=== PATIENT | male | born 1970 | race Caucasian/White ===

== ENCOUNTER 2020-11-07 16:38 | Inpatient (IN) | payer OTHER ==
[2020-11-07] MEDS ORDERED: ACETAMINOPHEN TAB 500 MG TAB PO STA (17:24)
[2020-11-07] MEDS ORDERED: MORPHINE SULFATE 4 MG/ML SYRINGE IVP STA (17:24)
[2020-11-07] MEDS ORDERED: VANCOMYCIN IV PER PHARMACY 1 EACH MISC MISCELLANE PRN (17:25)
[2020-11-07] MEDS ORDERED: PIPERACILLIN-TAZOBACTAM 3.375 GM in SODIUM CHLORIDE 0.9% 100 ML IVPB STA (17:25)
--- NOTE | 2020-11-07 17:30 | ED ---
Male Urogenital HPI - General Chief complaint: Urogenital Stated complaint: Urinary Issues - Sent by [facility] Time Seen by Provider: 11/07/20 16:52 Source: patient, RN notes reviewed Mode of arrival: ambulatory Limitations: no limitations - History of Present Illness Initial comments: This is a 49-year-old male presents emergency Department from [facility] with chief complaint of testicular pain, swelling, infection. Patient states started developing swelling last Saturday but states over the last few days he's had increasing pain he also states his right lower back pain. Patient's found to have pyogenic orchitis and concern for pyelonephritis. Patient was sent for further evaluation, treatment and urology evaluation. Patient did receive 2 g of Rocephin. Patient states pain is unbearable when he did receive Toradol, morphine. Patient has not had any recent Tylenol. Patient states the morphine did help his pain. Patient denies any dysuria currently states that initially he did and felt that it was related to urinary tract infection and he started taking Azo. Patient denies any nausea vomiting currently patient had persistent fever. Patient's had no prior testicular surgeries. Patient states that nothing really makes his pain feel better or worse, patient was icing it. - Related Data Allergies Allergy/AdvReac Type Severity Reaction Status Date / Time No Known Allergies Allergy Verified 11/07/20 16:47 Review of Systems ROS Statement: Those systems with pertinent positive or pertinent negative responses have been documented in the HPI. ROS Other: All systems not noted in ROS Statement are negative. Past Medical History Additional Past Medical History / Comment(s): FATTY LIVER History of Any Multi-Drug Resistant Organisms: None Reported Past Surgical History: Orthopedic Surgery Additional Past Surgical History / Comment(s): Left knee sx, carpal tunnel Past Psychological History: No Psychological Hx Reported Smoking Status: Former smoker Past Alcohol Use History: Occasional Past Drug Use History: None Reported General Exam Limitations: no limitations General appearance: alert, in no apparent distress Head exam: Present: atraumatic, normocephalic, normal inspection Eye exam: Present: normal appearance, PERRL, EOMI. Absent: scleral icterus, conjunctival injection, periorbital swelling ENT exam: Present: normal exam, normal oropharynx, mucous membranes moist Neck exam: Present: normal inspection. Absent: tenderness, meningismus, lymphadenopathy Respiratory exam: Present: normal lung sounds bilaterally. Absent: respiratory distress, wheezes, rales, rhonchi, stridor Cardiovascular Exam: Present: normal rhythm, tachycardia, normal heart sounds. Absent: systolic murmur, diastolic murmur, rubs, gallop, clicks GI/Abdominal exam: Present: soft, normal bowel sounds. Absent: distended, tenderness, guarding, rebound, rigid exam: Present: testicular tenderness, scrotal swelling, other (Erythematous, taunt skin, swollen scrotum). Absent: normal inspection Back exam: Present: tenderness, CVA tenderness (R). Absent: CVA tenderness (L) Neurological exam: Present: alert, oriented X3, CN II-XII intact Skin exam: Present: warm, dry, intact, normal color. Absent: rash Course Vital Signs 11/07/20 16:43 Temperature 102.1 F H Pulse Rate 109 H Respiratory 20 Rate Blood Pressure 161/68 O2 Sat by Pulse 98 Oximetry Medical Decision Making - Medical Decision Making Case is discussed with who accepts admission recommends Rocephin, vancomycin. Patient will be evaluated for possible surgery. Patient will be admitted for further treatment. Prior records were reviewed patient shows evidence of leukocytosis, orchitis and concerns for pyelonephritis had ultrasound and CT. Disposition Clinical Impression: Orchitis of right testicle, Fever, Flank pain Disposition: ADMITTED IP TO THIS HOSP Condition: Fair Referrals: None,Stated [Primary Care Provider] - 1-2 days
[2020-11-07] MEDS ORDERED: IBUPROFEN 400 MG TAB PO PRN (18:21)
[2020-11-07] MEDS ORDERED: NALOXONE 0.4 MG/ML 1 ML VIAL IV PRN (18:21)
[2020-11-07] MEDS ORDERED: ONDANSETRON 4 MG/2 ML VIAL IVP PRN (18:21)
[2020-11-07] MEDS ORDERED: VANCOMYCIN 2,500 MG in SODIUM CHLORIDE 0.9% 500 ML 500 ML IVPB ONE (18:30)
[2020-11-07] MEDS ORDERED: [UNRECOGNIZED DRUG - OTHER] INHALATION PRN (21:06)
[2020-11-07] MEDS: MORPHINE SULFATE 4 MG/ML SYRINGE IV PRN (21:43)
[2020-11-07] MEDS: SODIUM CHLORIDE 0.9% 1,000 ML IV SCH (21:46)
[2020-11-08] MEDS: MORPHINE SULFATE 4 MG/ML SYRINGE IV PRN ×6 (01:35→21:09)
[2020-11-08] MEDS: SODIUM CHLORIDE 0.9% 1,000 ML IV SCH ×3 (01:37→21:12)
[2020-11-08] MEDS: ACETAMINOPHEN TAB 500 MG TAB PO PRN ×3 (01:41→22:37)
[2020-11-08] MEDS ORDERED: VANCOMYCIN 2,500 MG in SODIUM CHLORIDE 0.9% 500 ML 500 ML IVPB SCH (06:00)
[2020-11-08 06:32] LABS: African American GFR (CKD) >90 (>60 ml/min/1.73 sqM); Anion Gap 8 mmol/L; Blood Urea Nitrogen 16 mg/dL (9-20); Calcium 8.5 mg/dL (8.4-10.2); Carbon Dioxide 29 mmol/L (22-30); Chloride 102 mmol/L (98-107); Glucose 124 mg/dL (74-99); Non-African American GFR(CKD) >90 (>60 ml/min/1.73 sqM); Potassium 3.8 mmol/L (3.5-5.1); Sodium 139 mmol/L (137-145)
[2020-11-08 09:12] LABS: Basophils # (A) 0.05 X 10*3/uL (0.00-0.10); Basophils % (A) 0.2 %; Eosinophils # (A) 0.03 X 10*3/uL (0.04-0.35); Eosinophils % (A) 0.1 %; HGB 12.1 g/dL (13.0-17.0); Lymphocytes # (A) 1.89 X 10*3/uL (0.90-5.00); Lymphocytes % (A) 8.7 %; MCH 31.3 pg (27.0-32.0); MCHC 31.8 g/dL (32.0-37.0); MCV 98.4 fL (80.0-97.0); Mean Platelet Volume 10.8 fL (9.5-12.2); Monocytes # (A) 1.18 X 10*3/uL (0.20-1.00); Monocytes % (A) 5.5 %; Neutrophils # (A) 18.36 X 10*3/uL (1.80-7.70); Neutrophils % (A) 84.9 %; Platelet Count 209 X 10*3/uL (140-440); RBC 3.86 X 10*6/uL (4.40-5.60); RDW 12.8 % (11.5-14.5); WBC 21.64 X 10*3/uL (4.50-10.00)
[2020-11-08] MEDS: KETOROLAC 15 MG/ML 1 ML VIAL IVP SCH ×2 (12:00→17:35)
[2020-11-08] MEDS: VANCOMYCIN 2,250 MG in SODIUM CHLORIDE 0.9% 500 ML 500 ML IVPB SCH ×2 (13:49→22:38)
--- NOTE | 2020-11-08 17:17 | P.GSHP ---
History of Present Illness H&P Date: 11/08/20 Chief Complaint: Right scortal swelling and pain Mr Panda is a 49-year-old male who presents as a transfer from [facility] with complaint of scrotal swelling, pain, ongoing for the past week. He also has been having Dysuria, urinary frequency. He is also been having fever/chills. He attempted to take over the counter Azo and Amoxicillin at home and did not notice any symptoms improvement. He underwent a scrotal U/S in [facility] which showed evidence of right orchitis with possible pyocele. He also underwent a CT abd/pelvis which showed no evidence of hydronephrosis. But did show evidence of adrenal nodule on the left. On presentation he was Febrile at 102 and his WBC was elevated at 28. This am on evaluation he indicates his scrotal pain and swelling is stable. D - Constitutional Constitutional: Reports chills, Reports fatigue, Reports fever - EENT Ears, nose, mouth and throat: Denies headache, Denies sore throat - Cardiovascular Cardiovascular: Denies chest pain, Denies shortness of breath - Respiratory Respiratory: Denies cough, Denies 7 - Gastrointestinal Gastrointestinal: Denies abdominal pain, Denies diarrhea, Denies nausea, Denies vomiting - Genitourinary (Female) Genitourinary: Reports dysuria, Reports flank pain, Reports urgency - Genitourinary (Male) Genitourinary: Reports dysuria, Reports flank pain, Reports testicular pain, Reports urinary frequency - Integumentary Integumentary: Denies pruritus, Denies rash - Neurological Neurological: Denies numbness, Denies weakness - Psychiatric Psychiatric: Denies anxiety, Denies depression Past Medical History Past Medical History: Sleep Apnea/CPAP/BIPAP Additional Past Medical History / Comment(s): FATTY LIVE, CPAP not here with pt. History of Any Multi-Drug Resistant Organisms: None Reported Past Surgical History: Orthopedic Surgery Additional Past Surgical History / Comment(s): Left knee sx, carpal tunnel Past Anesthesia/Blood Transfusion Reactions: No Reported Reaction Past Psychological History: No Psychological Hx Reported Smoking Status: Former smoker Past Alcohol Use History: Occasional Past Drug Use History: None Reported Medications and Allergies Home Medications Medication Instructions Recorded Confirmed Type Acetaminophen Tab [Tylenol] 1,500 mg PO Q6HR PRN 11/07/20 11/07/20 History Ascorbic Acid [Vitamin C] 500 mg PO DAILY 11/07/20 11/07/20 History EPINEPHrine [Primatene Mist] 1 - 2 puff INHALATION RT-Q6H PRN 11/07/20 11/07/20 History Melatonin 10 mg PO HS PRN 11/07/20 11/07/20 History Multivitamins, Thera [Multivitamin 1 tab PO DAILY 11/07/20 11/07/20 History (formulary)] [place]-3 Fatty Acids [[place]-3] 1,000 mg PO DAILY 11/07/20 11/07/20 History Allergies Allergy/AdvReac Type Severity Reaction Status Date / Time No Known Allergies Allergy Verified 11/07/20 19:46 Surgical - Exam Vital Signs Temp Pulse Resp BP Pulse Ox 102.1 F H 109 H 20 161/68 98 11/07/20 16:43 11/07/20 16:43 11/07/20 16:43 11/07/20 16:43 11/07/20 16:43 - General well developed, well nourished, no distress, moderate pain, obese - Eyes PERRL, normal ocular movement - ENT normal nares, normal mucosa - Neck trachea midline, no venous distension - Respiratory normal expansion, normal respiratory effort - Abdomen Abdomen: soft, non tender, no distended - Genitourinary Right scortal sac edema and cellulits, Testicle difficult to palapate, significant induration, no fluctance appreciated. Left scrotal skin with mild edema and cellulitis, normal left testicle - Psychiatric oriented to time, oriented to person, oriented to place Results - Labs 11/08/20 05:37 11/08/20 05:37 Abnormal Lab Results - Last 24 Hours (Table) 11/08/20 11/08/20 Range/Units 05:37 05:37 WBC 21.64 H (4.50-10.00) X 10*3/uL RBC 3.86 L (4.40-5.60) X 10*6/uL Hgb 12.1 L (13.0-17.0) g/dL Hct 38.0 L (39.6-50.0) % MCV 98.4 H (80.0-97.0) fL MCHC 31.8 L (32.0-37.0) g/dL Immature Gran # 0.13 H (0.00-0.04) X 10*3/uL Neutrophils # 18.36 H (1.80-7.70) X 10*3/uL Monocytes # 1.18 H (0.20-1.00) X 10*3/uL Eosinophils # 0.03 L (0.04-0.35) X 10*3/uL Glucose 124 H (74-99) mg/dL Diabetes panel 11/08/20 Range/Units 05:37 Sodium 139 (137-145) mmol/L Potassium 3.8 (3.5-5.1) mmol/L Chloride 102 (98-107) mmol/L Carbon Dioxide 29 (22-30) mmol/L BUN 16 (9-20) mg/dL Creatinine 0.67 (0.66-1.25) mg/dL Glucose 124 H (74-99) mg/dL Calcium 8.5 (8.4-10.2) mg/dL Calcium panel 11/08/20 Range/Units 05:37 Calcium 8.5 (8.4-10.2) mg/dL Pituitary panel 11/08/20 Range/Units 05:37 Sodium 139 (137-145) mmol/L Potassium 3.8 (3.5-5.1) mmol/L Chloride 102 (98-107) mmol/L Carbon Dioxide 29 (22-30) mmol/L BUN 16 (9-20) mg/dL Creatinine 0.67 (0.66-1.25) mg/dL Glucose 124 H (74-99) mg/dL Calcium 8.5 (8.4-10.2) mg/dL Adrenal panel 11/08/20 Range/Units 05:37 Sodium 139 (137-145) mmol/L Potassium 3.8 (3.5-5.1) mmol/L Chloride 102 (98-107) mmol/L Carbon Dioxide 29 (22-30) mmol/L BUN 16 (9-20) mg/dL Creatinine 0.67 (0.66-1.25) mg/dL Glucose 124 H (74-99) mg/dL Calcium 8.5 (8.4-10.2) mg/dL Assessment and Plan Assessment: 49 yo male admitted with sepsis secondary to UTI and orchitis. Patient febrile at 102, WBC of 28 on presentation. No evidence of scrotal abscess appreciated on exam. Plan: -Continue Vancomycin/Ceftrixone abx -Elevate Scrotum -Repeat am labs -Will obtain PVR to r/o urinary retention -Will need outpatient CT adrenal. given his adrenal lesion on non contrast CT
[2020-11-08 18:10] LABS: Appearance,Urine Cloudy (Clear); Bacteria,Urine Rare /hpf; Bilirubin,Urine Negative (Negative); Blood,Urine Trace (Negative); Color,Urine Yellow; Glucose,Urine (UA) Negative (Negative); Ketones,Urine Trace (Negative); Leukocyte Esterase,Urine Negative (Negative); Mucus,Urine Many /hpf; Nitrite,Urine Negative (Negative); Protein,Urine 1+ (Negative); RBC,Urine 4 /hpf (0-5); Specific Gravity,Urine 1.034 (1.001-1.035); WBC,Urine 8 /hpf (0-5)
[2020-11-08] MEDS: ALBUTEROL NEBULIZED 2.5 MG/3 ML INHALATION PRN (20:15)
[2020-11-09] MEDS: KETOROLAC 15 MG/ML 1 ML VIAL IVP SCH ×6 (00:09→23:00)
[2020-11-09] MEDS: SODIUM CHLORIDE 0.9% 1,000 ML IV SCH ×3 (00:29→21:29)
[2020-11-09] MEDS: MORPHINE SULFATE 4 MG/ML SYRINGE IV PRN ×4 (01:14→21:28)
[2020-11-09] MEDS: VANCOMYCIN 2,250 MG in SODIUM CHLORIDE 0.9% 500 ML 500 ML IVPB SCH ×3 (05:13→22:56)
[2020-11-09] MEDS: ALBUTEROL NEBULIZED 2.5 MG/3 ML INHALATION PRN ×3 (08:13→19:59)
[2020-11-09 09:18] LABS: Basophils # (A) 0.04 X 10*3/uL (0.00-0.10); Basophils % (A) 0.2 %; Eosinophils # (A) 0.04 X 10*3/uL (0.04-0.35); Eosinophils % (A) 0.2 %; HCT 36.7 % (39.6-50.0); HGB 11.9 g/dL (13.0-17.0); Lymphocytes # (A) 1.45 X 10*3/uL (0.90-5.00); Lymphocytes % (A) 8.7 %; MCH 31.4 pg (27.0-32.0); MCHC 32.4 g/dL (32.0-37.0); MCV 96.8 fL (80.0-97.0); Mean Platelet Volume 10.5 fL (9.5-12.2); Neutrophils # (A) 14.05 X 10*3/uL (1.80-7.70); Neutrophils % (A) 84.3 %; Platelet Count 216 X 10*3/uL (140-440); RBC 3.79 X 10*6/uL (4.40-5.60); RDW 12.6 % (11.5-14.5); WBC 16.68 X 10*3/uL (4.50-10.00)
[2020-11-09 09:42] LABS: African American GFR (CKD) 135.9 (60.0-200.0); Anion Gap 7.2 mmol/L (4.00-12.00); BUN/Creat Ratio 28.33 Ratio (12.00-20.00); Calcium 8.7 mg/dL (8.7-10.3); Carbon Dioxide 27.8 mmol/L (21.6-31.8); Non-African American GFR(CKD) 117.2 (60.0-200.0); Potassium 3.9 mmol/L (3.5-5.5)
[2020-11-09] MEDS ORDERED: VANCOMYCIN TROUGH DUE 1 EACH MISC MISCELLANE ONE (13:00)
--- NOTE | 2020-11-09 13:23 | P.PN ---
Subjective Progress Note Date: 11/09/20 No acute overnight events, swelling and pain slightly improved. Denies any difficulty voiding Objective - Vital Signs Vital signs: Vital Signs Temp 98.1 F 11/09/20 07:00 Pulse 82 11/09/20 08:23 Resp 17 11/09/20 08:00 BP 150/73 11/09/20 07:00 Pulse Ox 95 11/09/20 07:00 Intake & Output 11/08/20 11/09/20 11/09/20 18:59 06:59 18:59 Intake Total 1686 1000 Balance 1686 1000 Intake: IV 1450 500 Sodium Chloride 0.9% 1, 400 000 ml @ 130 mls/hr IV . [id number] [facility] Rx#:[id number] Vancomycin 2,250 mg In 500 500 Sodium Chloride 0.9% 500 ml 500 ml @ 167 mls/hr IVPB Q8H [facility] Rx#: [id number] Vancomycin 2,500 mg In 500 Sodium Chloride 0.9% 500 ml 500 ml @ 167 mls/hr IVPB ONCE ONE Rx#: [id number] cefTRIAXone 2 gm In 50 Sodium Chloride 0.9% 50 ml @ 100 mls/hr IVPB Q24HR [facility] Rx#:[id number] Intake, IV Titration 500 Amount Vancomycin 2,250 mg In 500 Sodium Chloride 0.9% 500 ml 500 ml @ 167 mls/hr IVPB Q8H [facility] Rx#: [id number] Oral 236 Other: # Voids 2 - Neck Neck: Present: normal ROM - Gastrointestinal General gastrointestinal: Present: soft. Absent: distended, tenderness - Genitourinary Genitourinary Comment(s): Right testicular swelling and tenderness improved compared to yesterday, left testicular normal, some skin thickening - Psychiatric Psychiatric: Present: A&O x's 3 - Labs CBC & Chem 7: 11/09/20 05:25 11/09/20 05:25 Labs: Abnormal Lab Results - Last 24 Hours (Table) 11/08/20 11/09/20 11/09/20 Range/Units Unknown 05:25 05:25 WBC 16.68 H (4.50-10.00) X 10*3/uL RBC 3.79 L (4.40-5.60) X 10*6/uL Hgb 11.9 L (13.0-17.0) g/dL Hct 36.7 L (39.6-50.0) % Immature Gran # 0.10 H (0.00-0.04) X 10*3/uL Neutrophils # 14.05 H (1.80-7.70) X 10*3/uL BUN/Creatinine Ratio 28.33 H (12.00-20.00) Ratio Glucose 128 H (70-110) mg/dL Urine Protein 1+ H (Negative) Urine Ketones Trace H (Negative) Urine Blood Trace H (Negative) Urine WBC 8 H (0-5) /hpf Urine Bacteria Rare H (None) /hpf Urine Mucus Many H (None) /hpf Assessment and Plan Assessment: 49 yo male admitted with sepsis secondary to UTI and orchitis. Patient febrile at 102, WBC of 28 on presentation. No evidence of scrotal abscess appreciated on exam. WBC trending down to 16.88, temp 102.4 overnight, afebrile this am Plan: -Continue Vancomycin/Ceftrixone abx -Elevate Scrotum -Repeat am labs -Will obtain urine cultures from [facility] -Will need outpatient CT adrenal. given his adrenal lesion on non contrast CT
[2020-11-09] MEDS: ACETAMINOPHEN TAB 500 MG TAB PO PRN ×2 (14:06→23:07)
[2020-11-09] MEDS: SENNOSIDES 8.6 MG TAB PO SCH (21:30)
[2020-11-09] MEDS: MELATONIN 5 MG TABLET PO PRN (23:05)
[2020-11-10] MEDS: MORPHINE SULFATE 4 MG/ML SYRINGE IV PRN ×4 (01:50→20:53)
[2020-11-10] MEDS: ALBUTEROL NEBULIZED 2.5 MG/3 ML INHALATION PRN ×4 (02:19→17:22)
[2020-11-10] MEDS: SODIUM CHLORIDE 0.9% 1,000 ML IV SCH ×3 (04:31→16:03)
[2020-11-10] MEDS: KETOROLAC 15 MG/ML 1 ML VIAL IVP SCH ×4 (05:04→23:03)
[2020-11-10] MEDS: VANCOMYCIN 2,250 MG in SODIUM CHLORIDE 0.9% 500 ML 500 ML IVPB SCH ×3 (05:06→21:54)
[2020-11-10] MEDS: SENNOSIDES 8.6 MG TAB PO SCH ×2 (08:40→20:52)
[2020-11-10 09:16] LABS: Basophils # (A) 0.02 X 10*3/uL (0.00-0.10); Basophils % (A) 0.2 %; Eosinophils # (A) 0.07 X 10*3/uL (0.04-0.35); Eosinophils % (A) 0.6 %; HCT 33.7 % (39.6-50.0); HGB 10.9 g/dL (13.0-17.0); Lymphocytes # (A) 1.24 X 10*3/uL (0.90-5.00); Lymphocytes % (A) 11.1 %; MCH 30.8 pg (27.0-32.0); MCHC 32.3 g/dL (32.0-37.0); MCV 95.2 fL (80.0-97.0); Mean Platelet Volume 10.5 fL (9.5-12.2); Monocytes # (A) 0.99 X 10*3/uL (0.20-1.00); Monocytes % (A) 8.8 %; Neutrophils % (A) 78.5 %; Platelet Count 208 X 10*3/uL (140-440); RBC 3.54 X 10*6/uL (4.40-5.60); RDW 12.3 % (11.5-14.5); WBC 11.21 X 10*3/uL (4.50-10.00)
[2020-11-10 10:29] LABS: African American GFR (CKD) 135.9 (60.0-200.0); Non-African American GFR(CKD) 117.2 (60.0-200.0)
--- NOTE | 2020-11-10 14:49 | P.PN ---
Subjective Progress Note Date: 11/10/20 The patient came from [facility] with epididymal orchitis right. His temperature was elevated and he had a white count of 28,000. He is slowly improving. He is afebrile. His white count is down to 11,000. On examination there is still induration of the scrotal skin. There is no distinct palpable abscess. He complains of some mild shortness of breath associated with IV fluids. He has no previous pulmonary history. He is morbidly obese. Impression epididymal orchitis with scrotal cellulitis improving slowly. I did discuss with the patient possibility of this turning into an abscess and we will see how he continues to respond to the antibiotics. Hopefully we can avoid surgical procedure. I'll have one of the hospital to see the patient for his shortness of breath. Objective - Vital Signs Vital signs: Vital Signs Temp 98.4 F 11/10/20 07:00 Pulse 80 11/10/20 14:00 Resp 16 11/10/20 14:00 BP 158/74 11/10/20 07:00 Pulse Ox 94 L 11/10/20 07:00 Intake & Output 11/09/20 11/10/20 11/10/20 18:59 06:59 18:59 Intake Total 218 240 50 Balance 218 240 50 Intake: Intake, IV Titration 50 Amount cefTRIAXone 2 gm In 50 Sodium Chloride 0.9% 50 ml @ 100 mls/hr IVPB Q24HR [facility] Rx#:[id number] Oral 218 240 Other: # Voids 1 1 3 - Labs CBC & Chem 7: 11/10/20 05:50 11/10/20 05:50 Labs: Abnormal Lab Results - Last 24 Hours (Table) 11/10/20 Range/Units 05:50 WBC 11.21 H (4.50-10.00) X 10*3/uL RBC 3.54 L (4.40-5.60) X 10*6/uL Hgb 10.9 L (13.0-17.0) g/dL Hct 33.7 L (39.6-50.0) % Immature Gran # 0.09 H (0.00-0.04) X 10*3/uL Neutrophils # 8.80 H (1.80-7.70) X 10*3/uL
[2020-11-10 18:50] LABS: African American GFR (CKD) >90 (>60 ml/min/1.73 sqM); Anion Gap 8 mmol/L; Blood Urea Nitrogen 16 mg/dL (9-20); Carbon Dioxide 26 mmol/L (22-30); Chloride 103 mmol/L (98-107); Glucose 118 mg/dL (74-99); Magnesium 2.1 mg/dL (1.6-2.3); Non-African American GFR(CKD) >90 (>60 ml/min/1.73 sqM); Potassium 3.6 mmol/L (3.5-5.1); Sodium 137 mmol/L (137-145)
--- NOTE | 2020-11-10 19:09 | XR ---
EXAMINATION TYPE: XR chest 2V DATE OF EXAM: 11/10/2020 COMPARISON: None available. HISTORY: Shortness of breath. TECHNIQUE: Frontal and lateral views of the chest are obtained. FINDINGS: There is moderate interstitial edema with associated hazy and streaky opacity. No pleural effusion, or pneumothorax seen. The cardiac silhouette size is enlarged. The osseous structures ar e intact. IMPRESSION: CHF with superimposed infiltrates not excluded.
[2020-11-10] MEDS: ALBUTEROL NEBULIZED 2.5 MG/3 ML INHALATION SCH (19:44)
[2020-11-10] MEDS ORDERED: FUROSEMIDE 10 MG/ML 4 ML VIAL IV STA (19:55)
[2020-11-10] MEDS: MELATONIN 5 MG TABLET PO PRN (20:52)
[2020-11-11] MEDS: ALBUTEROL NEBULIZED 2.5 MG/3 ML INHALATION SCH (00:27)
--- NOTE | 2020-11-11 00:34 | P.CONS ---
History of Present Illness - Reason for Consult Consult date: 11/10/20 - History of Present Illness The patient is a 49-year-old male with a PMH of obstructive sleep apnea on CPAP who was transferred to [facility] from [facility] with complaints of scrotal swelling and pain. The patient had undergone a scrotal ultrasound which had revealed orchitis. He was subsequently admitted to the urology service. He was placed on IV antibiotic coverage with vancomycin and ceftriaxone and was started on normal saline IV fluids at 130 ml/hr. Medicine service was consulted due to gradually worsening shortness of breath. Patient was seen at the bedside. He reported that the shortness of breath started roughly 24-48 hours ago and that gradually worsened. He reports a long-standing history of asthma along with 35 pack year smoking history although he quit several years ago. The patient notes that his current shortness of breath unlike anything he is previously experienced. Reports some improvement with breathing treatments in the hospital. He reports some wheezing though denied chest discomfort, orthopnea, lower extremity swelling, or PND. Has denied fever, chills, cough, abdominal pain, nausea, vomiting, palpitations, or calf pain. A chest x-ray was obtained and was consistent with pulmonary edema and enlarged cardiac silhouette. After evaluation revealed a proBNP of 724, BUN 16, creatinine 0.62, potassium 3.6, WBC count 11.2, and hemoglobin 10.9. Review of Systems Pertinent positives and negatives as discussed in HPI, a complete review of systems was performed and all other systems are negative. Past Medical History Past Medical History: Sleep Apnea/CPAP/BIPAP Additional Past Medical History / Comment(s): FATTY LIVE, CPAP not here with pt. History of Any Multi-Drug Resistant Organisms: None Reported Past Surgical History: Orthopedic Surgery Additional Past Surgical History / Comment(s): Left knee sx, carpal tunnel Past Anesthesia/Blood Transfusion Reactions: No Reported Reaction Past Psychological History: No Psychological Hx Reported Smoking Status: Former smoker Past Alcohol Use History: Occasional Past Drug Use History: None Reported Medications and Allergies Home Medications Medication Instructions Recorded Confirmed Type Acetaminophen Tab [Tylenol] 1,500 mg PO Q6HR PRN 11/07/20 11/07/20 History Ascorbic Acid [Vitamin C] 500 mg PO DAILY 11/07/20 11/07/20 History EPINEPHrine [Primatene Mist] 1 - 2 puff INHALATION RT-Q6H PRN 11/07/20 11/07/20 History Melatonin 10 mg PO HS PRN 11/07/20 11/07/20 History Multivitamins, Thera [Multivitamin 1 tab PO DAILY 11/07/20 11/07/20 History (formulary)] [place]-3 Fatty Acids [[place]-3] 1,000 mg PO DAILY 11/07/20 11/07/20 History Allergies Allergy/AdvReac Type Severity Reaction Status Date / Time No Known Allergies Allergy Verified 11/07/20 19:46 Physical Exam Vitals: Vital Signs Temp Pulse Pulse Resp BP Pulse Ox 11/10/20 17:36 88 11/10/20 17:22 86 11/10/20 15:00 98.7 F 90 20 186/86 94 L 11/10/20 14:00 80 16 11/10/20 11:02 88 11/10/20 08:00 80 16 11/10/20 07:42 88 11/10/20 07:29 84 11/10/20 07:00 98.4 F 80 16 158/74 94 L 11/10/20 02:35 86 11/10/20 02:19 86 11/10/20 01:00 98.4 F 89 15 154/77 92 L 11/10/20 00:41 17 Intake and Output 11/10/20 11/10/20 11/11/20 14:59 22:59 06:59 Intake Total 50 240 Balance 50 240 Intake: Intake, IV Titration 50 Amount cefTRIAXone 2 gm In 50 Sodium Chloride 0.9% 50 ml @ 100 mls/hr IVPB Q24HR [facility] Rx#:[id number] Oral 240 Other: # Voids 3 8 General: non toxic, no distress, appears at stated age, morbidly obese Derm: no unusual rashes/lesions no unusual ecchymoses, warm, dry Head: atraumatic, normocephalic, symmetric Eyes: EOMI, no lid lag, anicteric sclera, pupils equal round reactive to light ENT: Nose and ears atraumatic, no thrush, no pharyngeal erythema Neck: No thyromegaly, no cervical lymphadenopathy, trachea midline, supple Mouth: no lip lesion, mucus membranes moist Cardiovascular: S1S2 reg, no murmur, positive posterior tibial pulse bilateral, trace lower extremity edema bilaterally, capillary refill less than 2 seconds Lungs: Bilateral diffuse wheezing, no rhonchi, no rales , no accessory muscle use Abdominal: soft, nontender to palpation, no guarding, no appreciable organomegaly, normal bowel sounds Urogenital: Scrotal swelling, tenderness, and erythema Ext: no gross muscle atrophy, muscle strength 5 out of 5 in all 4 extremities grossly, no contractures, Neuro: CN II-XI grossly intact, light touch intact all 4 extremities, finger to nose within normal limits, Psych: Alert, oriented, appropriate affect Results CBC & Chem 7: 11/10/20 05:50 11/10/20 18:17 Labs: Abnormal Lab Results - Last 24 Hours (Table) 11/10/20 11/10/20 Range/Units 05:50 18:17 WBC 11.21 H (4.50-10.00) X 10*3/uL RBC 3.54 L (4.40-5.60) X 10*6/uL Hgb 10.9 L (13.0-17.0) g/dL Hct 33.7 L (39.6-50.0) % Immature Gran # 0.09 H (0.00-0.04) X 10*3/uL Neutrophils # 8.80 H (1.80-7.70) X 10*3/uL Creatinine 0.62 L (0.66-1.25) mg/dL Glucose 118 H (74-99) mg/dL Calcium 8.0 L (8.4-10.2) mg/dL Microbiology - Last 24 Hours (Table) 11/09/20 14:26 Blood Culture - Preliminary Blood No Growth after 24 hours 11/09/20 14:09 Blood Culture - Preliminary Blood No Growth after 24 hours Assessment and Plan Plan: Shortness of breath, likely secondary to likely newly diagnosed CHF -Obtain echocardiogram -Hold off on IV fluids -Lasix 40 mg IVP every 12 hours day for now -Monitor electrolytes daily -Obtain baseline EKG -C/w Duonebs due to hx of Asthma Orchitis -Currently on IV antibiotics -Defer to Urology service Normocytic anemia, unknown baseline -Monitor for now
[2020-11-11] MEDS: MORPHINE SULFATE 4 MG/ML SYRINGE IV PRN ×4 (02:07→21:59)
[2020-11-11] MEDS: SODIUM CHLORIDE 0.9% 1,000 ML IV SCH (04:54)
[2020-11-11] MEDS ORDERED: VANCOMYCIN TROUGH DUE 1 EACH MISC MISCELLANE ONE (05:00)
[2020-11-11] MEDS: KETOROLAC 15 MG/ML 1 ML VIAL IVP SCH (05:03)
[2020-11-11] MEDS: IPRATROPIUM-ALBUTEROL 3 ML NEB INHALATION PRN ×2 (05:57→16:00)
[2020-11-11 06:18] LABS: African American GFR (CKD) >90 (>60 ml/min/1.73 sqM); Non-African American GFR(CKD) >90 (>60 ml/min/1.73 sqM)
[2020-11-11] MEDS: VANCOMYCIN 2,250 MG in SODIUM CHLORIDE 0.9% 500 ML 500 ML IVPB SCH ×3 (06:29→20:58)
[2020-11-11 07:14] LABS: HCT 35.8 % (39.0-53.0); HGB 11.7 gm/dL (13.0-17.5); MCH 30.9 pg (25.0-35.0); MCHC 32.7 g/dL (31.0-37.0); MCV 94.6 fL (80.0-100.0); Mean Platelet Volume 7.8; Platelet Count 255 k/uL (150-450); RBC 3.78 m/uL (4.30-5.90); RDW 12.7 % (11.5-15.5); WBC 11.3 k/uL (3.8-10.6)
--- NOTE | 2020-11-11 07:47 | P.PN ---
Subjective Progress Note Date: 11/11/20 The patient is in the hospital with epididymal orchitis and secondarily scrotal cellulitis. He is been treated with antibiotics and is improving. He had some shortness of breath and medicine saw him yesterday and he is much better. Today the scrotal swelling is less so. The pain is less a. He'll ambulate. If his pain is under control I will plan on discharging home hopefully tomorrow. Objective - Vital Signs Vital signs: Vital Signs Temp 98.2 F 11/11/20 01:55 Pulse 88 11/11/20 06:08 Resp 16 11/11/20 02:00 BP 175/60 11/11/20 01:55 Pulse Ox 95 11/11/20 01:55 Intake & Output 11/10/20 11/11/20 11/11/20 18:59 06:59 18:59 Intake Total 290 240 Balance 290 240 Intake: Intake, IV Titration 50 Amount cefTRIAXone 2 gm In 50 Sodium Chloride 0.9% 50 ml @ 100 mls/hr IVPB Q24HR [facility] Rx#:[id number] Oral 240 240 Other: # Voids 3 8 - Labs CBC & Chem 7: 11/11/20 05:16 11/11/20 05:16 Labs: Abnormal Lab Results - Last 24 Hours (Table) 11/10/20 11/10/20 11/11/20 Range/Units 05:50 18:17 05:16 WBC 11.21 H (4.50-10.00) X 10*3/uL RBC 3.54 L (4.40-5.60) X 10*6/uL Hgb 10.9 L (13.0-17.0) g/dL Hct 33.7 L (39.6-50.0) % Immature Gran # 0.09 H (0.00-0.04) X 10*3/uL Neutrophils # 8.80 H (1.80-7.70) X 10*3/uL Creatinine 0.62 L 0.59 L (0.66-1.25) mg/dL Glucose 118 H (74-99) mg/dL Calcium 8.0 L (8.4-10.2) mg/dL 11/11/20 Range/Units 05:16 WBC 11.3 H (4.50-10.00) X 10*3/uL RBC 3.78 L (4.40-5.60) X 10*6/uL Hgb 11.7 L (13.0-17.0) g/dL Hct 35.8 L (39.6-50.0) % Immature Gran # (0.00-0.04) X 10*3/uL Neutrophils # (1.80-7.70) X 10*3/uL Creatinine (0.66-1.25) mg/dL Glucose (74-99) mg/dL Calcium (8.4-10.2) mg/dL Microbiology - Last 24 Hours (Table) 11/09/20 14:26 Blood Culture - Preliminary Blood No Growth after 24 hours 11/09/20 14:09 Blood Culture - Preliminary Blood No Growth after 24 hours
[2020-11-11] MEDS: FUROSEMIDE 10 MG/ML 4 ML VIAL IV SCH ×2 (09:53→20:58)
[2020-11-11] MEDS: SENNOSIDES 8.6 MG TAB PO SCH ×2 (09:53→20:58)
[2020-11-11] MEDS: HYDROcodone/APAP 5-325MG 1 EACH TAB PO PRN ×3 (11:22→20:58)
[2020-11-11] MEDS: polyethylene glycoL 3350 17 GM POWD.PACK PO SCH (12:51)
--- NOTE | 2020-11-11 18:00 | ECHOF ---
Referral Reason:suspected CHF MEASUREMENTS -------- HEIGHT: 180.3 cm WEIGHT: 162.4 kg BP: IVSd: 1.5 cm (0.6 - 1.1) LVIDd: 4.9 cm (3.9 - 5.3) LVPWd: 1.3 cm (0.6 - 1.1) IVSs: 1.8 cm LVIDs: 3.5 cm LVPWs: 1.8 cm LAESV Index (A-L): 22.29 ml/m Ao Diam: 3.7 cm (2.0 - 3.7) AV Cusp: 2.1 cm (1.5 - 2.6) LA Diam: 2.6 cm (2.7 - 3.8) MV EXCURSION: 27.202 mm (> 18.000) MV EF SLOPE: 123 mm/s (70 - 150) EPSS: 1.8 cm MV E Tomasz: 1.12 m/s MV DecT: 201 ms MV A Tomasz: 0.78 m/s MV E/A Ratio: 1.45 AV maxP.39 mmHg AV meanP.54 mmHg RAP: 15.00 mmHg RVSP: 32.52 mmHg FINDINGS -------- This was a technically difficult study with suboptimal parasternal views. The left ventricular size is normal. There is mild concentric left ventricular hypertrophy. Overa ll left ventricular systolic function is low-normal with, an EF between 50 - 55 %. The right ventricle is normal in size. The left atrial size is normal. The right atrial size is normal. Peak/mean gradient across the Aortic Valve is 20.39mmHg / 10.54mmHg suggestive of mild Aortic Stenosi s. Unable to visualize the Aortic Valve The mitral valve is normal. The mitral valve leaflets are mildly thickened. Mild mitral regurgita tion is present. The tricuspid valve appears structurally normal. Mild tricuspid regurgitation present. Right vent ricular systolic pressure is normal at < 35 mmHg. There is no pulmonic regurgitation present. The aortic root size is normal. The inferior vena cava is mildly dilated. There is no pericardial effusion. CONCLUSIONS -------- 1. The left ventricular size is normal. 2. There is mild concentric left ventricular hypertrophy. 3. Overall left ventricular systolic function is low-normal with, an EF between 50 - 55 %. 4. Peak/mean gradient across the Aortic Valve is 20.39mmHg / 10.54mmHg suggestive of mild Aortic Sten osis. Unable to visualize the Aortic Valve 5. The mitral valve leaflets are mildly thickened. 6. Mild mitral regurgitation is present. 7. Mild tricuspid regurgitation present. 8. The inferior vena cava is mildly dilated. 9. There is no pericardial effusion. EXTRA HAND: Yessenia Malcolm RDCS
[2020-11-11 18:11] LABS: African American GFR (CKD) >90 (>60 ml/min/1.73 sqM); Anion Gap 9 mmol/L; Blood Urea Nitrogen 15 mg/dL (9-20); Calcium 8.7 mg/dL (8.4-10.2); Carbon Dioxide 30 mmol/L (22-30); Chloride 97 mmol/L (98-107); Glucose 155 mg/dL (74-99); Magnesium 1.9 mg/dL (1.6-2.3); Non-African American GFR(CKD) >90 (>60 ml/min/1.73 sqM); Potassium 3.6 mmol/L (3.5-5.1); Sodium 136 mmol/L (137-145)
--- NOTE | 2020-11-11 20:26 | P.PN ---
Subjective Progress Note Date: 11/11/20 (delayed charting seen at 0900) Principal diagnosis: shortness of breath The patient is a 49-year-old male with a PMH of obstructive sleep apnea on CPAP who was transferred to [facility] from [facility] with complaints of scrotal swelling and pain. The patient had undergone a scrotal ultrasound which had revealed orchitis. During treatment he developed worsening respiratory distress. Medicine was subsequently consulted. Patient started on Lasix after chest x-ray revealed acute pulmonary edema. Patient seen and examined at bedside. He feels much improved after receiving IV Lasix. His breathing is much easier, no chest discomfort, coughing has improve d, no nausea, no vomiting, pain is well controlled. General: non toxic, no distress, appears younger than stated age, obese Derm: warm, dry Head: atraumatic, normocephalic, symmetric Eyes: EOMI, no lid lag, anicteric sclera Mouth: no lip lesion, mucus membranes moist Cardiovascular: S1S2 reg, no murmur, positive posterior tibial pulse bilateral, Lungs: Crackles right lower lobe , no accessory muscle use Abdominal: soft, nontender to palpation, no guarding, no appreciable organomegaly Ext: no gross muscle atrophy, no edema, no contractures Neuro: CN II-XI grossly intact, no focal neuro deficits Psych: Alert, oriented, appropriate affect Acute exacerbation of diastolic congestive heart failure -Continue with diuresis -Echocardiogram revealed which shows mild concentric LVH but it preserved ejection fraction of 50-55%. Will need outpatient follow-up in 6 months to one year or as there is suggestion of mild aortic stenosis. -Strict I's and O's, daily weight -Follow potassium and magnesium levels Orchitis with sepsis -Management per urology -Continue with vancomycin and ceftriaxone -Follow creatinine closely Morbid obesity with BMI 48.6 -Structured outpatient weight loss Sleep apnea -Resume CPAP on discharge Mild intermittent asthma without exacerbation -Continue with scheduled DuoNeb's and primatine mist Thank you for allowing us to participate in the care of this pleasant patient. Do not hesitate to contact us with questions. Someone can be reached from the [facility] hospitalist group all hours of the day at [phone] or via perfect serve. Objective - Vital Signs Vital signs: Vital Signs Temp 99.6 F 11/11/20 13:00 Pulse 82 11/11/20 16:12 Resp 17 11/11/20 13:00 BP 169/74 11/11/20 13:00 Pulse Ox 96 11/11/20 13:00 Intake & Output 11/10/20 11/11/20 11/11/20 18:59 06:59 18:59 Intake Total 290 240 790 Balance 290 240 790 Intake: IV 550 Vancomycin 2,250 mg In 500 Sodium Chloride 0.9% 500 ml 500 ml @ 167 mls/hr IVPB Q8H BRANDO Rx#: [id number] cefTRIAXone 2 gm In 50 Sodium Chloride 0.9% 50 ml @ 100 mls/hr IVPB Q24HR BRANDO Rx#:[id number] Intake, IV Titration 50 Amount cefTRIAXone 2 gm In 50 Sodium Chloride 0.9% 50 ml @ 100 mls/hr IVPB Q24HR BRANDO Rx#:[id number] Oral 240 240 240 Other: # Voids 3 8 - Labs CBC & Chem 7: 11/11/20 05:16 11/11/20 17:35 Labs: Abnormal Lab Results - Last 24 Hours (Table) 11/11/20 11/11/20 11/11/20 Range/Units 05:16 05:16 17:35 WBC 11.3 H (3.8-10.6) k/uL RBC 3.78 L (4.30-5.90) m/uL Hgb 11.7 L (13.0-17.5) gm/dL Hct 35.8 L (39.0-53.0) % Sodium 136 L (137-145) mmol/L Chloride 97 L (98-107) mmol/L Creatinine 0.59 L 0.60 L (0.66-1.25) mg/dL Glucose 155 H (74-99) mg/dL Microbiology - Last 24 Hours (Table) 11/09/20 14:26 Blood Culture - Preliminary Blood No Growth after 48 hours 11/09/20 14:09 Blood Culture - Preliminary Blood No Growth after 48 hours
[2020-11-11] MEDS: MELATONIN 5 MG TABLET PO PRN (21:59)
[2020-11-12] MEDS: MORPHINE SULFATE 4 MG/ML SYRINGE IV PRN ×2 (02:00→05:32)
[2020-11-12] MEDS: HYDROcodone/APAP 5-325MG 1 EACH TAB PO PRN ×2 (03:01→08:16)
[2020-11-12] MEDS: VANCOMYCIN 2,250 MG in SODIUM CHLORIDE 0.9% 500 ML 500 ML IVPB SCH (05:32)
[2020-11-12 08:10] VITALS: BP 176/78; PULSE 67; RESP 20; TEMP 98.6
[2020-11-12] MEDS: SENNOSIDES 8.6 MG TAB PO SCH (08:16)
[2020-11-12] MEDS: FUROSEMIDE 10 MG/ML 4 ML VIAL IV SCH (08:16)
[2020-11-12] MEDS: polyethylene glycoL 3350 17 GM POWD.PACK PO SCH (08:17)
[2020-11-12 09:16] LABS: Magnesium 2.1 mg/dL (1.5-2.4); Phosphorus 3.8 mg/dL (2.4-5.1)
--- NOTE | 2020-11-12 09:37 | P.DS ---
Providers Date of admission: 11/07/20 17:43 Attending physician: Samm Stanley MD Consults: 11/10/20 17:57 Consult Physician Routine Consulting Provider: Stacey Briones Consult Reason/Comments: medical management Do you want consulting provider notified?: Yes Primary care physician: Stated None Hospital Course: The patient is 49. He was transferred from [facility] to [facility] under the care of Ashley because of a scrotal cellulitis. He was treated with IV antibiotics and his white count went from 21,000 11,000 over 48 hours. The swelling decreased. No obvious abscess formation occurred. Some pulmonary issues during this hospitalization and medicine was asked to see him and treated him appropriately. Swelling of the scrotum was decreased. He is afebrile. Blood cultures are negative. He is ready for discharge home. He'll go home on Levaquin 500 daily plus Bucklin and Toradol when necessary for pain. He'll follow-up in the office next week. Medicine will see him to treat him appropriately with pulmonary treatment to. His condition is good. His been instructed of the swelling or pain gets worse his to contact us immediately. The patient concurs and agrees with this discharge plan. P Patient Condition at Discharge: Good Plan - Discharge Summary Discharge Rx Participant: Yes New Discharge Prescriptions: New HYDROcodone/APAP 5-325MG [Bucklin 5-325] 1 tab PO Q4HR PRN #20 tab PRN Reason: Pain Control Ketorolac [Toradol] 10 mg PO Q6HR PRN #20 tab PRN Reason: Pain Control Levofloxacin [Levaquin] 500 mg PO DAILY 1 Days #10 tab No Action Multivitamins, Thera [Multivitamin (formulary)] 1 tab PO DAILY Ascorbic Acid [Vitamin C] 500 mg PO DAILY Acetaminophen Tab [Tylenol] 1,500 mg PO Q6HR PRN PRN Reason: Fever And/ Or Pain Melatonin 10 mg PO HS PRN PRN Reason: Insomnia EPINEPHrine [Primatene Mist] 1 - 2 puff INHALATION RT-Q6H PRN PRN Reason: Shortness Of Breath Royston-3 Fatty Acids [Royston-3] 1,000 mg PO DAILY Discharge Medication List Acetaminophen Tab [Tylenol] 1,500 mg PO Q6HR PRN 11/07/20 [History] Ascorbic Acid [Vitamin C] 500 mg PO DAILY 11/07/20 [History] EPINEPHrine [Primatene Mist] 1 - 2 puff INHALATION RT-Q6H PRN 11/07/20 [History] Melatonin 10 mg PO HS PRN 11/07/20 [History] Multivitamins, Thera [Multivitamin (formulary)] 1 tab PO DAILY 11/07/20 [History] Royston-3 Fatty Acids [Royston-3] 1,000 mg PO DAILY 11/07/20 [History] HYDROcodone/APAP 5-325MG [Bucklin 5-325] 1 tab PO Q4HR PRN #20 tab 11/12/20 [Rx] Ketorolac [Toradol] 10 mg PO Q6HR PRN #20 tab 11/12/20 [Rx] Levofloxacin [Levaquin] 500 mg PO DAILY 1 Days #10 tab 11/12/20 [Rx] Follow up Appointment(s)/Referral(s): Samm Stanley MD [STAFF PHYSICIAN] - 1 Week None,Stated [Primary Care Provider] - 1-2 days Discharge Disposition: HOME SELF-CARE
--- NOTE | 2020-11-12 16:12 | P.PN ---
Subjective Progress Note Date: 11/12/20 Principal diagnosis: sob Patient states that he was feeling better, no significant sob currently. No chest pain. No fevers. He is getting ready to be discharged. Objective - Vital Signs Vital signs: Vital Signs Temp 98.6 F 11/12/20 07:00 Pulse 67 11/12/20 07:00 Resp 20 11/12/20 07:00 BP 176/78 11/12/20 07:00 Pulse Ox 94 L 11/12/20 07:00 Intake & Output 11/11/20 11/12/20 11/12/20 18:59 06:59 18:59 Intake Total 790 500 Balance 790 500 Weight 157.9 kg Intake: IV 550 500 Vancomycin 2,250 mg In 500 500 Sodium Chloride 0.9% 500 ml 500 ml @ 167 mls/hr IVPB Q8H BRANDO Rx#: [id number] cefTRIAXone 2 gm In 50 Sodium Chloride 0.9% 50 ml @ 100 mls/hr IVPB Q24HR BRANDO Rx#:[id number] Oral 240 Other: Voiding Method Toilet # Voids 2 - Exam General: non toxic, no distress, appears younger than stated age, obese Derm: warm, dry Head: atraumatic, normocephalic, symmetric Eyes: EOMI, no lid lag, anicteric sclera Mouth: no lip lesion, mucus membranes moist Cardiovascular: S1S2 reg, no murmur, positive posterior tibial pulse bilateral, Lungs: Scattered wheezing. Abdominal: soft, nontender to palpation, no guarding, no appreciable organomegaly Ext: no gross muscle atrophy, no edema, no contractures Neuro: CN II-XI grossly intact, no focal neuro deficits Psych: Alert, oriented, appropriate affect - Labs CBC & Chem 7: 11/11/20 05:16 11/11/20 17:35 Labs: Abnormal Lab Results - Last 24 Hours (Table) 11/11/20 Range/Units 17:35 Sodium 136 L (137-145) mmol/L Chloride 97 L (98-107) mmol/L Creatinine 0.60 L (0.66-1.25) mg/dL Glucose 155 H (74-99) mg/dL Microbiology - Last 24 Hours (Table) 11/09/20 14:26 Blood Culture - Preliminary Blood No Growth after 48 hours 11/09/20 14:09 Blood Culture - Preliminary Blood No Growth after 48 hours Assessment and Plan Plan: Acute exacerbation of diastolic congestive heart failure -No need for outpatient diuresis upon discharge. -Echocardiogram revealed which shows mild concentric LVH but it preserved ejection fraction of 50-55%. Will need outpatient follow-up in 6 months to one year or as there is suggestion of mild aortic stenosis. -Patient told to follow up with PCP and echo in 6 months. Orchitis with sepsis -Management per urology -Will be discharged on oral abx. Morbid obesity with BMI 48.6 -Structured outpatient weight loss Sleep apnea -Resume CPAP on discharge Mild intermittent asthma without exacerbation -Albuterol prn prescribed.
== END 2020-11-12 12:56 | disposition home or self-care (01) | DRG 871 ==
LOC: EC 16:38 → 4SSUR 17:43 → 6NMEDSUR 20:07 → 4SSUR 11-11 12:57
PROVIDERS: ADMIT Urology; ATTEND Urology
DX: A41.9 Sepsis, unspecified organism (principal); I50.33 Acute on chronic diastolic (congestive) heart failure; N39.0 Urinary tract infection, site not specified; Z68.42 Body mass index [BMI] 45.0-49.9, adult; E27.8 Other specified disorders of adrenal gland; G47.30 Sleep apnea, unspecified; J45.20 Mild intermittent asthma, uncomplicated; K76.0 Fatty (change of) liver, not elsewhere classified; E66.01 Morbid (severe) obesity due to excess calories; Z87.891 Personal history of nicotine dependence; N49.2 Inflammatory disorders of scrotum; D64.9 Anemia, unspecified
CPT/HCPCS: 71046; 80048; 80202; 81001; 82565; 83735; 83880; 84100; 85025; 85027; 87040; 87635; 93306; 94640; 96361; 96365; 96367; 99285